=== PATIENT | male | born 1990 | race Two or more races ===

== ENCOUNTER 2019-03-26 21:02 | Emergency (ER) | payer SELFPAY ==
[~2019-03-26] VITALS: Ht 182.9 cm; Wt 68.2 kg
[2019-03-26 21:25] VITALS: BP 132/60
== END 2019-03-26 21:42 | disposition left against medical advice (07) ==
LOC: ER 21:02
DX: F98.9 Unspecified behavioral and emotional disorders with onset usually occurring in childhood and adolescence (principal); F15.10 Other stimulant abuse, uncomplicated; Z53.21 Procedure and treatment not carried out due to patient leaving prior to being seen by health care provider